=== PATIENT | male | born 1985 | race Caucasian/White ===

== ENCOUNTER 2019-10-02 19:16 | Emergency (ER) | payer OTHER ==
[~2019-10-02] VITALS: Ht 200.7 cm; Wt 145.0 kg
--- NOTE | 2019-10-02 19:25 | NUR ---
Patient is a [employer] employee who was doing a training on Wednesday night when he injured his right judd muscle. Patient states it was bruised and swollen initially and he rested it and iced it. The bruising resolved but the pain and swelling remained. Patient rates the pain as a 2/10 when not moving. Patient is in no apparent distress and sits comfortably in the gurney.
[2019-10-02 20:06] VITALS: BP 122/89
== END 2019-10-02 20:25 ==
LOC: ED 20:19
DX: S29.011A Strain of muscle and tendon of front wall of thorax, initial encounter (principal); X50.0XXA Overexertion from strenuous movement or load, initial encounter; Y93.89 Activity, other specified; Y92.69 Other specified industrial and construction area as the place of occurrence of the external cause; Y99.0 Civilian activity done for income or pay
CPT/HCPCS: 71045; 93005; 99283

== ENCOUNTER 2020-12-30 02:43 | Emergency (ER) | payer OTHER ==
[~2020-12-30] VITALS: Ht 167.6 cm; Wt 150.0 kg
[2020-12-30 02:53] VITALS: BP 139/88
== END 2020-12-30 05:32 | disposition home or self-care (01) ==
LOC: ED 05:20
DX: G89.11 Acute pain due to trauma (principal); M25.561 Pain in right knee
CPT/HCPCS: 99283

== ENCOUNTER 2021-04-20 02:12 | Observation (INO) | payer OTHER ==
[~2021-04-20] VITALS: Ht 200.7 cm; Wt 163.9 kg
--- NOTE | 2021-04-20 02:35 | NUR ---
PT HERE FOR PALPITATIONS THAT STARTED APPROX 2 HOURS AGO. PT DENIES PAIN BUT SAYS HE FEELS HI HEART BEATING PT DENIES ANY CARDIAC HX. PT PLACED ON MONITOR. HR BETWEEN 120-145 FAMILY AT BEDSIDE. CALL LIGHT IN REACH
[2021-04-20] MEDS ORDERED: DILTIAZEM 5 MG/ML, 5ML ONE ×2 (03:20→04:26)
[2021-04-20] MEDS ORDERED: DILTIAZEM 5 MG/ML, 5ML IVPush ONE ×2 (03:30→04:30)
[2021-04-20] MEDS ORDERED: SODIUM CHLORIDE 0.9% 1,000ML IVBOLUS ONE ×2 (03:30→05:30)
[2021-04-20 03:56] LABS: MEAN CORPUSCULAR HEMOGLOBIN 28.1 pg (27.5-34.5); MEAN PLATELET VOLUME 8.6 fL (7.4-10.4); PLATELET COUNT 227 x10^3/uL (130-400); RED BLOOD COUNT 5.92 x10^6/uL (4.38-5.82); RED CELL DISTRIBUTION WIDTH 13.4 % (9.4-14.8)
[2021-04-20 04:00] LABS: ALANINE AMINOTRANSFERASE 35 U/L (12-78); ALBUMIN 4.2 g/dL (3.4-5.0); ANION GAP 8 mmol/L (5-15); CHLORIDE 103 mmol/L (98-107)
--- NOTE | 2021-04-20 04:04 | NUR ---
FLUIDS RUNNING AND PT MEDICATED. HR IMPORVED AFTER CARDIZM. WAITING ON LABS. CALL LIGHT IN REACH
[2021-04-20 04:11] LABS: ALKALINE PHOSPHATASE 67 U/L (45-117); BILIRUBIN,TOTAL 0.5 mg/dL (0.2-1.0); TOTAL PROTEIN 7.8 g/dL (6.4-8.2); TROPONIN I < 0.015 ng/mL (0.000-0.045)
[2021-04-20 04:28] LABS: BASOS#(MANUAL) 0.15 x10^3/uL (0-0.1); BASOS% (MANUAL) 2 % (0-1); EOS#(MANUAL) 0.23 x10^3/uL (0.0-0.4); EOS% (MANUAL) 3 % (1-7); LYMPH#(MANUAL) 3.19 x10^3/uL (1-3.4); LYMPHS% (MANUAL) 42 % (22-44); MONOS#(MANUAL) 0.53 x10^3/uL (0.3-2.7); MONOS% (MANUAL) 7 % (2-9); REACTIVE LYMPHS # (MANUAL) 0.23 x10^3/uL (0-0); REACTIVE LYMPHS % (MANUAL) 3 % (0-0); SEG#(MANUAL) 3.27 x10^3/uL (1.8-6.8); SEGS% (MANUAL) 43 % (42-75)
[2021-04-20 04:29] LABS: <PLATELET ESTIMATE> ADEQUATE; <PLT MORPHOLOGY> NORMAL PLT MORPH; <RBC MORPHOLOGY> NORMAL
[2021-04-20] MEDS ORDERED: METOPROLOL 1 MG/ML, 5ML ONE (04:45)
[2021-04-20] MEDS ORDERED: METOPROLOL 1 MG/ML, 5ML IVPush ONE (05:00)
--- NOTE | 2021-04-20 05:06 | NUR ---
PT REMEDICATED WITH DILTIAZIM WITH LITTLE EFFECT. PT THEN MEDICATED WITH METOPROLOL.
--- NOTE | 2021-04-20 05:10 | NUR ---
bedside report from aristides alexander. pt care transferred at this time. pt resting on gurney, still in a-fib, bp is hypotensive at 74/40, ERP salena aware and at bs discussing care options. pt medication per dec for hypotension. NAD, bed in lowest, rails engaged, call light on lap, wctm.
[2021-04-20] MEDS ORDERED: SODIUM CHLORIDE 0.9%, 500ML IVBOLUS ONE (06:30)
[2021-04-20] MEDS ORDERED: SODIUM CHLORIDE 0.9% 1,000 ML IV SCH (07:00)
[2021-04-20] MEDS ORDERED: ACETAMINOPHEN 325 MG TABLET PO PRN (07:00)
--- NOTE | 2021-04-20 07:02 | NUR ---
Patient is resting comfortably in bed. Bed in lowest, rails engaged, call light on lap. BP WNL AFTER BOLUS. NAD. WCTM.
--- NOTE | 2021-04-20 07:10 | NUR ---
REPORT CALLED TO ONUR FLORES, PT CARE TO BE TRANSFERRED ON ARRIVAL TO FLOOR.
[2021-04-20 07:33] LABS: TROPONIN I < 0.015 ng/mL (0.000-0.045)
[2021-04-20 07:47] VITALS: BP 170/72
[2021-04-20] MEDS ORDERED: AMIODARONE 450 MG in DEXTROSE 5% 241 ML IV PRN (12:30)
[2021-04-20] MEDS ORDERED: AMIODARONE 150 MG in DEXTROSE 5% 100 ML IV ONE (12:30)
[2021-04-20 12:52] LABS: TROPONIN I < 0.015 ng/mL (0.000-0.045)
[2021-04-20] MEDS ORDERED: FILTER 0.22 MICRON IV PRN (13:00)
[2021-04-20] MEDS ORDERED: APIXABAN 5 MG TABLET ONE (13:47)
[2021-04-20] MEDS ORDERED: APIXABAN 5 MG TABLET PO ONE (14:00)
[2021-04-20] MEDS ORDERED: PROPOFOL 10 MG/ML, 20ML ONE (14:11)
[2021-04-20] MEDS ORDERED: METO50TA82 PO (14:26)
[2021-04-20] MEDS ORDERED: APIX5TAB PO (14:26)
[2021-04-20] MEDS ORDERED: METOPROLOL TARTRATE 50 MG TAB PO SCH (18:00)
[2021-04-20] MEDS ORDERED: APIXABAN 5 MG TABLET PO SCH (21:00)
[2021-04-21] MEDS ORDERED: ASPIRIN 325 MG TABLET EC PO SCH (06:00)
== END 2021-04-20 17:18 | disposition home or self-care (01) ==
LOC: ED 06:48 → SUATTDRO 06:54 → INTOOBSV 07:06 → EDIP 07:06 → 5SO 07:45
PROVIDERS: ADMIT Hospitalist; ATTEND Hospitalist
DX: I48.20 Chronic atrial fibrillation, unspecified (principal); E66.9 Obesity, unspecified; I10 Essential (primary) hypertension; Z79.899 Other long term (current) drug therapy
CPT/HCPCS: 36415; 71045; 80053; 83735; 84443; 84484; 85025; 93005; 93312; 93325; 96361; 96374; 96375; 96376; 99291; G0378; J2704; J7030; J7040

== ENCOUNTER 2021-04-26 18:18 | Emergency (ER) | payer OTHER ==
[~2021-04-26] VITALS: Ht 200.7 cm; Wt 160.8 kg
[~2021-04-26 18:18] MED LIST: APIX5TAB PO; METO50TA82 PO
[2021-04-26] MEDS ORDERED: PROPOFOL 10 MG/ML, 20ML ONE (18:31)
[2021-04-26] MEDS ORDERED: MIDAZOLAM 1 MG/ML, 2ML ONE (19:00)
[2021-04-26] MEDS ORDERED: PROPOFOL 10 MG/ML, 20ML IVPush ONE (19:00)
--- NOTE | 2021-04-26 19:01 | NUR ---
LATE ENTRY: 1829: PT TO T3 FOR PROCEDURAL SEDATION AND CARDIOVERSION. IN AFIB RVR, HR 125-145. STABLE BP. DENIES DIZZINESS/WEAKNESS/NAUSEA. PIV ESTABLISHED. 1834: CONSENT FOR SEDATION/CARDIOVERSION SIGNED. PADS IN PLACE, ROOM READIED FOR PROCEDURE. 1849: TIME OUT AND START OF PROCEDURE. PT GIVEN A TOTAL OF MG PROPOFOL. SUCCESSFUL CARDIOVERSION TO SINUS RHTYTHM, RATE 94. VS STABLE THROUGHOUT. AIRWAY PATENT THROUGHOUT. 1901: END PROCEDURE. REPEAT EKG COMPLETED. 1903: PT AWAKE, CONVERSING W STAFF. DENIES CP/SOB/NAUSEA. VSS ON 3L O2 BY IVELISSE. Addendum: 04/26/21 at 1909 by ALEX TOTAL PROPOFOL 140MG.
[2021-04-26 19:48] VITALS: BP 133/78
--- NOTE | 2021-04-26 19:48 | NUR ---
PT REMAINS IN NSR RATE 95. DC EDUCATION PROVIDED, PT DEMONSTRATES UNDERSTANDING. PT TO DC VIA WHEELCHAIR. DENIES DIZZINESS/WEAKNESS/CP. MOTHER TO TRANSPORT PT HOME.
== END 2021-04-26 19:51 | disposition home or self-care (01) ==
LOC: ED 19:45
DX: I48.91 Unspecified atrial fibrillation (principal); I10 Essential (primary) hypertension
CPT/HCPCS: 71045; 92960; 93005; 99152; 99285

== ENCOUNTER → 2021-05-20 | Outpatient (CLI) | payer OTHER | END | disposition home or self-care (01) | LOC: CVU 06:37 | PROVIDERS: ATTEND Internal Medicine Cardiovascular Disease | DX: I48.91 Unspecified atrial fibrillation (principal) | CPT/HCPCS: 93306; 93356 ==

== ENCOUNTER 2021-07-11 09:07 | Outpatient (CLI) | payer OTHER | END 2021-07-11 23:59 | disposition home or self-care (01) | LOC: CFH 09:07 | PROVIDERS: ATTEND Nurse Practitioner Family | DX: I48.91 Unspecified atrial fibrillation (principal) | CPT/HCPCS: 78452; 93017; A9502 ==